=== PATIENT | female | born 1960 | race Caucasian/White ===

== ENCOUNTER 2020-06-02 06:04 | Day surgery (SDC) | payer OTHER, SELFPAY ==
[2020-05-27 08:48] VITALS: BMI 27.4
[2020-06-02] VITALS (18 sets, daily range): BP systolic 85–114; BP diastolic 55–81; PULSE 68–90; RESP 10–23; TEMP 35.6–37; O2SAT 91–98; BMI 27.3
--- NOTE | 2020-06-02 | DI.RAD.S_ITS ---
PROCEDURE: XR LUMBAR SPINE 2-3V INDICATIONS: L45 LAMINECTOMY W/ FUSION AND BONE GRAFT. TECHNIQUE: Fluoroscopic images were obtained during an operative procedure and submitted for interpretation following the completion of the procedure. COMPARISON: [facility], MR, MR LUMBAR SPINE WITHOUT CONTRAST, 02/09/2020, 13:07. [facility], CR, XR LUMBAR SPINE 2 OR 3 VIEWS, 03/28/2020, 9:55. FINDINGS: These fluoroscopic images were performed for intraoperative localization. On these images, bilateral pedicle screws are seen at the L4-L5 level, with vertical fixation rods and a disc spacer. No joaquin intraoperative complication is seen. Please correlate with intraoperative findings. IMPRESSION: Normal intraoperative examination. Dictated by: Frederic Robles M.D. on 06/02/2020 at 9:11 Approved by: Frederic Robles M.D. on 06/02/2020 at 9:12
[2020-06-02] MEDS: LACTATED RINGERS 1,000 ML 42 ML IV ×2 (07:00→09:21)
--- NOTE | 2020-06-02 07:13 | PM.PREOP ---
Pre-operative Note COVID-19 COVID-19 status: Negative Result date/Date tested (Pos, Neg/Pending): 05/30/20 Interval Note History & Physical reviewed/Exam performed by Physician: Yes Changes to H&P: No H&P completed within 30 days and has changed as indicated here:: L leg worse now
[2020-06-02] MEDS: CEFAZOLIN 2 GM/100 ML FROZ.PIGGY IV ×3 (07:34→23:19)
--- NOTE | 2020-06-02 07:35 | P.OP_ITS ---
Operative Date/Time/Diagnoses Date of procedure: 06/02/20 Time of procedure: 09:47 Pre-op diagnosis: Lumbar stenosis with radiculopathy Post-op diagnosis: same Procedure & Clinicians Procedure: L4-5 TLIF (posterior/posterior interbody fusion) with cage L4-5 screws Iliac crest bone graft L4-5 laminectomy Microscope Placement of epidural catheter Same procedure as scheduled: Yes Indications: [age] year old female with intractable pain from stenosis. They had failed conservative management and requested operative intervention. Risks and benefits of surgery were discussed and appropriate consents were obtained. Surgeon: Osmar Solis [employer] Specialist: Madelaine Lim Anesthesia Type: General Operative Notes Findings: None Closure Type: primary Specimen(s): none sent Prosthetic devices, grafts, tissues, transplants, or devices: NuVasive MAS Reline screws Globus Rise cage Applied: catheter Estimated Blood Loss (mL): 20 Blood products transfused: none Procedure in detail: The patient was brought to the operating room and intubated on the table. A time-out was performed. They were then rolled over to the well- padded Jaskaran table in the prone position. Preoperative antibiotics were given. The back was prepped and draped in the standard sterile fashion. Using fluoroscopy, a 4 cm longitudinal incision was made to the well-marked left of the midline. We used Bovie to come down to and split the lumbodorsal fascia. Using fluoroscopy and monitoring, we then percutaneously placed Jamshidi needles down the pedicles of L4 and L5 on the left side. These were changed out to guidewires and then we tapped and then placed the NuVasive MAS Reline screw shanks. We then opened up the retractors and used Bovie to clear up the posterolateral gutter as well as medially along the lamina to the spinous processes. A bur was used to decorticate the transverse processes. We brought in the microscope. Using a combination of bur and Kerrison rongeurs, a laminectomy was performed from the left side. We cleared over past the midline and carefully depressed the dura until we were able to decompress the opposite side. We cleared out the neural foramen. This completed the la minectomy at L4-5. This was separate and distinct from the TLIF approach as we had to decompress the canal and the nerves. We then began the TLIF prep. A complete facetectomy was performed on this side at L4-5. We carefully cleaned up the remainder of the foramen until we could easily retract the exiting root as well as clearing medially below the dura and expose the disc space. The disc was prepped with bipolar and then an annulotomy was performed. We performed a diskectomy using a combination of paddles, irene, pituitaries, and curettes. We distracted the disc using a paddle and locked the retractor in an open position. We then filled the disc space with Osteocel bone graft. We then placed the globus Rise cage under fluoroscopy and then filled this in with more bone graft. The distraction on the retractor was released to compress down. This completed the posterior interbody fusion portion of the TLIF at L4-5. An epidural catheter was then prepped with 4 mL of 0.5% Marcaine, 1 mg Stadol, 4 mg Duramorph, and 100 mcg of fentanyl and placed in the spinal canal by carefully depressing the dura and advancing it 6 cm cephalad under the remaining lamina without resistance. We then placed the screw heads, edward, and locked down the set screws. The wound was copiously irrigated. A small stab incision was made over the PSIS. We used a Jamshidi needle to aspirate several mL of bone marrow from the pelvis. This was mixed with the remaining Osteocel and combined with all of the locally harvested bone graft and placed in the posterolateral gutter for the posterior fusion of the TLIF at L4- 5. The muscle fascia was closed. The epidural catheter was then injected without resistance and the catheter was pulled. We then went to the opposite side. Again using fluoroscopy, a 3 cm incision was made and Bovie was used to come down to split the fascia. Using neural monitoring and fluoroscopy, Jamshidi needles were advanced down the pedicles of L4 and L5 on the right side. These were switched over guidewires, tapped, and screws placed. We then placed a edward and locked the set screws on this side. The wound was irrigated. The fascia was closed. Vancomycin powder was placed in the wounds. The superficial and skin were closed. A sterile dressing was placed. The patient was then rolled over extubated and brought to recovery room without complications. Complications: none Post-operative Condition: stable Disposition: PACU Plan for aftercare: Admit to the hospital. Up with PT.
--- NOTE | 2020-06-02 08:09 | SUR.OPER ---
Prone on spine table, head in foam head support, padded chest and pelvic supports, gel pad at knees, lower legs supported by pillows; nipples, genitalia and toes free of pressure, arms secured on foam padded arm boards at <90 degrees abduction. Tape over blanket at thigh secured to table.
[2020-06-02] MEDS: THROMBIN (RECOMBINANT) 5,000 UNIT VIAL 5000 UNIT TOP (08:13)
[2020-06-02] MEDS: VANCOMYCIN 1,000 MG VIAL 1000 MG TOP (08:13)
[2020-06-02] MEDS: SODIUM CHLORIDE 0.9% 1,000 ML, GENTAMICIN 80 MG IRR ×2 (08:13→08:14)
[2020-06-02] MEDS: BUPIVACAINE 0.5% (PF) 4 ML, MORPHINE-PF 4 MG, BUTORPHANOL 1 MG, fentaNYL 100 MCG INJ (09:20)
--- NOTE | 2020-06-02 10:59 | SUR.PHASEI ---
1049 Pt has been sleeping, easily aroused throughout PACU stay; denied pain/nausea throughout. To room 212, bed down and locked, call light within reach, spouse in the room. SCDs on, VSS. No questions from staff.
[2020-06-02] MEDS: LACTATED RINGERS 1,000 ML 125 ML IV ×2 (11:19→21:11)
[2020-06-02] MEDS: CELECOXIB 200 MG CAPSULE 400 MG PO (12:02)
--- NOTE | 2020-06-02 15:42 | PT.IIE ---
Current Diagnoses Spinal stenosis, lumbar region with neurogenic claudication (06/02/20) Other intervertebral disc degeneration, lumbar region (06/02/20) Strain of muscle, fascia and tendon of lower back, subsequent encounter (06/02/20) Surgery Performed Operation Date: 06/02/20 07:45 Actual Procedures p L45 laminectomy and instrumented fusion w/bone graft(Not Applicable) - Osmar Solis MD Surgical History (Last Updated 05/27/20 @ 09:28 by Renetta Gonzalez RN) History of (Acute) History of hysterectomy (Acute) Hx of cholecystectomy (Acute) Hx of tubal ligation (Acute) Medical History (Last Updated 05/27/20 @ 09:27 by Renetta Gonzalez RN) Anxiety (Acute) Arthritis (Acute) Depression (Acute) Easy bruisability (Acute) Eczema (Acute) Elevated cholesterol (Acute) GERD (gastroesophageal reflux disease) (Acute) Seizure (Acute) Physical Therapy Inpatient Evaluation/Re-Eval M1 PT/OT-IP Prior Functional Status Start: 06/02/20 14:42 Freq: NEEDED Status: Active Protocol: Document 06/02/20 15:42 AB (Rec: 06/02/20 16:58 AB [id number]) Medical Review Prior Functional Status Medical History Reviewed Yes Communication able to make needs known Mobility and Gait pt stated that she is independent with all mobilities and ambulation without AD Social History Household Members spouse Living Arrangements House Number of Floors (Floors) Two Floors Number of Stairs To Enter/Railing? pt stays on main level of the house has 1 step to enter from the garage Home Environment Standard Height Toilet,Walk in Shower Additional Social History Comment pt has not DME (just had FWW ~ 2 years ago but stated that they gave it away); spouse will try to borrow from friends but if not, will purchase one pt's son will also stay with pt to assist M2 PT-IP Current Condition Start: 06/02/20 14:42 Freq: NEEDED Status: Active Protocol: Document 06/02/20 15:42 AB (Rec: 06/02/20 16:58 AB [id number]) Physical Therapy Current Condition Current Condition Evaluation Date 06/02/20 Treatment Diagnosis s/p L4-5 TLIF/lami; difficulty in walking Onset Date 06/02/20 Precautions Lumbar Precautions Log Roll,No Twisting,Limit Bending,Lifting Restriction of 10 lbs,Gait Belt above Incisional Area M3 PT-IP Subjective Start: 06/02/20 14:42 Freq: NEEDED Status: Active Protocol: Document 06/02/20 15:42 AB (Rec: 06/02/20 16:58 AB [id number]) Subjective Physical Therapy Visit Type Type Initial Evaluation Visit Start Time 15:42 Visit Stop Time 16:26 Total Visit Minutes 44 Number of CONSTRUCTION SUPERINTENDENT Visits 0 Physical Therapy Visit Comments Patient Comments pt is requested to move and sit up Therapy Pain Assessment Pain When Pain Assessed At Rest Pain Present Pain Present Pain Reported Location back Intensity 5 Scale Used Numeric (0 - 10) Pain Management Techniques Modification of Treatment,Re- positioning,Timing of Activity with Medications M4 PT-IP Mobility and Gait Start: 06/02/20 14:42 Freq: NEEDED Status: Active Protocol: Document 06/02/20 15:42 AB (Rec: 06/02/20 16:58 [email or web address]) PT-Bed Mobility Assessment Rolling Type of Rolling Log Rolling Level of Assist Standby Assistance Supine to Sit Supine to Sit Standby Assistance Sit to Supine Sit to Supine Standby Assistance Scooting Scooting to Edge of Bed Standby Assistance PT-Transfer Assessment Sit to and From Stand Sit to and from Stand Minimal Assistance,1 Person Assistance,Use of Upper Extremities Equipment Transfer Assistive Device Gait Belt,Front Wheeled Walker Orthotic/Prosthetic Devices or Brace: No Comments Mobility Comments educated on back precautions and log roll bed mobility. completed log roll supine to sit with max cues. pt is drowsy and requires cues for all tasks and has difficulty following directions. spouse in room with pt. pt was able to sit on EOB SBA to CGA. scooted to EOB SBA. completed sit to stand min A and cues and was able to take 2 steps forwards then backwards and side stepping towards HOB but with c/o increase back pain. pt is drowsy and instructed to lay back in bed. pt completed sit to supine SBA and cues for techniques for log roll. positioned pt in bed. call light and table placed within reach. informed pt and spouse that pt will need a FWW. pt stated that she just had one ~ 2 years ago but gave it away. Spouse stated that he will try to borrow one and if not, he will purchase one outside since he is not sure if pt's insurance will cover another FWW. Gait Assessment Gait Gait Assistance Required: Minimum Assistance,1 Person Assist Distance (Feet) 2 Able to Maintain Weight Bearing Status Yes During Gait Assistive Devices Assistive Device Gait Belt,Front Wheeled Walker Orthotic/Prosthetic Devices or Brace: No Gait Deviations General Gait Pattern Antalgic,Decreased Stride Length,Decreased Feet Clearance,Step-to Gait Factors Limiting Gait Function Factors Limiting Gait Function Decreased Activity Tolerance, Decreased Strength,Difficulty Following Directions,Limited Range of Motion,Pain,Poor Balance,Poor Safety Awareness Comments Gait Comments pt was able to take a few steps but did not walk far due to c/o increase back pain and pt is also drowsy. PT-Balance Assessment Sitting Balance and Reactions Static Sitting Balance Ability Good Dynamic Sitting Balance Ability Good Standing Balance and Reactions Static Standing Balance Ability Fair Dynamic Standing Balance Ability Fair Device Used FWW M5 PT-IP Objective Assessments Start: 06/02/20 14:42 Freq: NEEDED Status: Active Protocol: Document 06/02/20 15:42 AB (Rec: 06/02/20 16:58 AB [email or web address]) Orientation Orientation/Cognition Level of Alertness Alert Orientation Name,Place,Situation Safety Awareness Decreased Safety Awareness Memory Description Short Term Impaired Gross Range of Motion Lower Extremity ROM Assessment Within Functional Limits Strength Lower Extremity Strength Assessment Bilaterally Impaired Comments Strength Comments RLE3+/5 LLE 4-/5 Muscle Tone Muscle Tone WNL Yes M6 PT-IP Treatment Start: 06/02/20 14:42 Freq: NEEDED Status: Active Protocol: Document 06/02/20 15:42 AB (Rec: 06/02/20 16:58 AB [email or web address]) Physical Therapy Treatment Education Education Provided Precautions,Weight Bearing Status,Post-Op Packet,Safety M7 PT-IP Assessment and Plan Start: 06/02/20 14:42 Freq: NEEDED Status: Active Protocol: Document 06/02/20 15:42 AB (Rec: 06/02/20 16:58 AB [email or web address]) PT Summary Assessment and Plan Potential Rehabilitation Potential Good Status of Condition at Evaluation Evolving Summary Impairments Pain,ROM,Strength,Balance, Coordination,Sensation,Tone, Cognition,Bed Mobility, Transfers,Gait,Activity Tolerance Assessment Summary pt s/p L4-5 TLIF and just had surgery this morning. pt will likely progress during hospital stay and plans to go home and spouse will assist pt at home. d/c plan depending on progress and caregiver training will be conducted when appropriate and will also complete stair climbing training prior to d/c. Goals Bed Mobility Goal Independent Transfer Goal Independent,Front Wheeled Walker Gait Goal Independent,Front Wheel Walker Gait Distance 200 Other Goals up/down 1 step using FWW SBA Days to Meet Goals 5 Frequency of Treatment Frequency Of Treatment Twice a Day Treatment Plan Physical Therapy Treatment Plan Bed Mobility Training,Transfer Training,Gait Training, Therapeutic Exercise,Balance Retraining,Post Op Education, Discharge Planning,Hot or Cold Pack,Neuromuscular Re-ed, Coordination Retraining,Manual Therapy Other Recommendations and Next Treatment ambulation, stair climbing, Focus caregiver training when appropriate Recommendations To Nursing Amount of Assist Needed 1 Person Assist Discharge Recommendations PT Discharge Recommendations Home with Assistance Transportation Needs at Discharge Private Vehicle
[2020-06-02] MEDS: GABAPENTIN 400 MG CAPSULE 800 MG PO ×2 (15:48→21:11)
[2020-06-02] MEDS: HYDROCODONE/ACET 5/325 TABLET 2 TAB PO ×2 (15:50→21:12)
[2020-06-02] MEDS: diphenhydrAMINE 25 MG TABLET PO (19:08)
[2020-06-02] MEDS: DOCUSATE 100 MG CAPSULE PO (21:12)
[2020-06-02] MEDS: SENNOSIDES 8.6 MG TABLET 17.2 MG PO (21:12)
[2020-06-02] MEDS: TRAZODONE 100 MG TABLET PO (21:12)
[2020-06-02] MEDS: CELECOXIB 200 MG CAPSULE PO (21:12)
[2020-06-03 04:10] VITALS: BP 100/62; PULSE 90; RESP 20; TEMP 36.8; O2SAT 94
[2020-06-03] MEDS: HYDROCODONE/ACET 5/325 TABLET 2 TAB PO ×3 (04:12→12:00)
[2020-06-03 06:18] LABS: Hematocrit 33.9 % (36-46); Hemoglobin 11.4 g/dL (12.0-16.0)
--- NOTE | 2020-06-03 06:52 | PM.PNPO.1 ---
Subjective Subjective Date Patient Seen: 06/03/20 Time Patient Seen: 06:52 Interval history: She is doing very well. She has been up and moving around with minimal assistance. Pain is under good control. Legs feel great Exam Vital Signs (past 8 hours): - 06/02/20 23:05 06/03/20 04:10 Temperature 98.6 F 98.2 F Pulse Rate 87 90 Respiratory Rate 16 20 Blood Pressure 111/70 100/62 Pulse Oximetry 94 94 Oxygen Delivery Method Room Air Oxygen Flow Rate 0 Const Orientation: alert and oriented x3 Back/Spine/Pelvis Other: Mild drainage. 5/5 motor both lower extremities Objective Labs Result Diagrams: 06/03/20 05:34 Labs: Laboratory Results - last 24 hr 06/03/20 05:34 Hgb 11.4 L Hct 33.9 L Assessment & Plan Post-op Postoperative Procedures: Procedures Operation Date: 06/02/20 07:45 Actual Procedures Side Surgeon p L45 laminectomy and instrumented fusion w/bone graft Not Applicable Osmar Solis MD she is doing great. Mobilize with PT this morning. She wants to go home after that. Quality VTE Deep Vein Thrombosis/Pulmonary Embolism Present on Admission: No
[2020-06-03 07:48] VITALS: BP 115/76; PULSE 77; RESP 16; TEMP 35.7; O2SAT 95
[2020-06-03] MEDS: DOCUSATE 100 MG CAPSULE PO (08:03)
[2020-06-03] MEDS: GABAPENTIN 400 MG CAPSULE 800 MG PO (08:03)
[2020-06-03] MEDS: estradioL 0.5 MG TABLET PO (08:03)
[2020-06-03] MEDS: CELECOXIB 200 MG CAPSULE PO (08:03)
[2020-06-03] MEDS: OXYBUTYNIN 5 MG TABLET PO (08:04)
[2020-06-03] MEDS: SERTRALINE 50 MG TABLET 100 MG PO (08:04)
[2020-06-03] MEDS: FLUTICASONE 120 SPRAY/16 GM SPRAY.SUSP NASAL (08:05)
--- NOTE | 2020-06-03 08:21 | PC.NURSE ---
Addendum entered by Amaya Peace R.N. 06/03/20 12:06: pt d/c at 1206 with personal belongings Original Note: Drsg changed; incisions intact, well-approximated; connor-skin healthy, pink; petroleum gauze still in place to right incision; 4 X 4 Gauze drsg secured with Tegaderm; patient tolerated well PO [employer] for moderate post-op pain; patient transfered with 1-asst to toilet; gait stable; fww
--- NOTE | 2020-06-03 09:30 | PT.IPTN ---
Current Diagnoses Spinal stenosis, lumbar region with neurogenic claudication (06/02/20) Other intervertebral disc degeneration, lumbar region (06/02/20) Strain of muscle, fascia and tendon of lower back, subsequent encounter (06/02/20) Surgery Performed Operation Date: 06/02/20 07:45 Actual Procedures p L45 laminectomy and instrumented fusion w/bone graft(Not Applicable) - Osmar Solis MD Physical Therapy Treatment Note M2 PT-IP Current Condition Start: 06/02/20 14:42 Freq: NEEDED Status: Active Protocol: Document 06/02/20 15:42 AB (Rec: 06/02/20 16:58 AB [email or web address]) Physical Therapy Current Condition Current Condition Evaluation Date 06/02/20 Treatment Diagnosis s/p L4-5 TLIF/lami; difficulty in walking Onset Date 06/02/20 Precautions Lumbar Precautions Log Roll,No Twisting,Limit Bending,Lifting Restriction of 10 lbs,Gait Belt above Incisional Area M3 PT-IP Subjective Start: 06/02/20 14:42 Freq: NEEDED Status: Active Protocol: Document 06/03/20 09:30 AB (Rec: 06/03/20 12:53 AB [id number]) Subjective Physical Therapy Visit Type Type Treatment Note Visit Start Time 09:30 Visit Stop Time 11:08 Total Visit Minutes 49 Notes pt seen for split visits: 930 to 1009 and 1058 to 1108 Physical Therapy Visit Comments Patient Comments pt is agreeable to do PT Therapy Pain Assessment Pain When Pain Assessed At Rest Pain Present Pain Present Pain Reported Location back Intensity 4 Scale Used Numeric (0 - 10) Pain Management Techniques Distraction,Modification of Treatment,Timing of Activity with Medications M4 PT-IP Mobility and Gait Start: 06/02/20 14:42 Freq: NEEDED Status: Active Protocol: Document 06/03/20 09:30 AB (Rec: 06/03/20 12:53 AB [id number]) PT-Bed Mobility Assessment Rolling Type of Rolling Log Rolling Level of Assist Standby Assistance Supine to Sit Supine to Sit Standby Assistance Sit to Supine Sit to Supine Standby Assistance PT-Transfer Assessment Sit to and From Stand Sit to and from Stand Contact Guard Assistance, Minimal Assistance,1 Person Assistance,Use of Upper Extremities Equipment Transfer Assistive Device Gait Belt,Front Wheeled Walker Orthotic/Prosthetic Devices or Brace: No Transfers Transfer Destination Bed,Chair Transfer Technique anmbulated using FWW Transfer Ability Level of Assist Contact Guard Assistance, Minimal Assistance,1 Person Assistance,Use of Upper Extremities Comments Mobility Comments pt completed sit to stand from chair min A and with initial LOB requiring min A for rebalancing. pt educated on sit to stand and completed again CGA and cues. pt ambulated towards the bed using FWW CGA. completed supine<>sit SBA but with cues for log roll technique. conducted caregiver training. educated spouse on how to assist and cues pt. pt completed supine<>sit with spouse assisting x 2 reps and requiring instructions from PT with first rep and was able to complete and spouse cueing pt. educated spouse on how to use safety belt and how to assist. spouse was able to put belt on and assist pt with ambulation in the hallway ~ 75 ft. completed up/down platform step using FWW and completed with spouse assiting. pt assisted back to her room. ambulated using fWW to the bed with spouse assisting and completed sit to supine SBA. positioned pt in bed. call light and table placed within reach. Gait Assessment Gait Gait Assistance Required: Contact Guard Assist,Minimum Assistance,1 Person Assist Distance (Feet) 75 Able to Maintain Weight Bearing Status Yes During Gait Assistive Devices Assistive Device Gait Belt,Front Wheeled Walker Orthotic/Prosthetic Devices or Brace: No Gait Deviations General Gait Pattern Antalgic,Decreased Stride Length,Decreased Feet Clearance Factors Limiting Gait Function Factors Limiting Gait Function Decreased Activity Tolerance, Decreased Strength,Difficulty Following Directions,Limited Range of Motion,Pain,Poor Balance,Poor Safety Awareness Stair Climbing Assessment Evaluation Level of Assist On Stairs Minimal Assistance,1 Person Assistance Devices Stair Climbing Assistive Devices Front Wheel Walker Technique/Endurance Stair Climbing Direction Ascend and Descend Stair Climbing Technique Step to Step Number of Steps Climbed 1 Stair Climbing Set # Repetitions (reps) 2 Comments Stair Climbing Comments spouse was able to assist pt safely M5 PT-IP Objective Assessments Start: 06/02/20 14:42 Freq: NEEDED Status: Active Protocol: Document 06/02/20 15:42 AB (Rec: 06/02/20 16:58 AB [id number]) Orientation Orientation/Cognition Level of Alertness Alert Orientation Name,Place,Situation Safety Awareness Decreased Safety Awareness Memory Description Short Term Impaired Gross Range of Motion Lower Extremity ROM Assessment Within Functional Limits Strength Lower Extremity Strength Assessment Bilaterally Impaired Comments Strength Comments RLE3+/5 LLE 4-/5 Muscle Tone Muscle Tone WNL Yes M6 PT-IP Treatment Start: 06/02/20 14:42 Freq: NEEDED Status: Active Protocol: Document 06/03/20 09:30 AB (Rec: 06/03/20 12:53 AB [id number]) Physical Therapy Treatment Education Education Provided Precautions,Safety M7 PT-IP Assessment and Plan Start: 06/02/20 14:42 Freq: NEEDED Status: Active Protocol: Document 06/03/20 09:30 AB (Rec: 06/03/20 12:53 AB [id number]) PT Summary Assessment and Plan Potential Rehabilitation Potential Good Summary Impairments Pain,ROM,Strength,Balance, Coordination,Sensation,Tone, Cognition,Bed Mobility, Transfers,Gait,Activity Tolerance Progress Towards Goals Progressing Toward Goals Assessment Summary caregiver training conducted and spouse was able to assist pt safely. pt plans to go home with spouse to assist. pt may go home when medically stable. Goals Bed Mobility Goal Independent Transfer Goal Independent,Front Wheeled Walker Gait Goal Independent,Front Wheel Walker Gait Distance 200 Other Goals up/down 1 step using FWW SBA Days to Meet Goals 5 Frequency of Treatment Frequency Of Treatment Twice a Day Treatment Plan Physical Therapy Treatment Plan Bed Mobility Training,Transfer Training,Gait Training, Therapeutic Exercise,Balance Retraining,Post Op Education, Discharge Planning,Hot or Cold Pack,Neuromuscular Re-ed, Coordination Retraining,Manual Therapy Other Recommendations and Next Treatment ambulation, stair climbing, Focus caregiver training when appropriate Recommendations To Nursing Amount of Assist Needed 1 Person Assist Discharge Recommendations PT Discharge Recommendations Home with Assistance Transportation Needs at Discharge Private Vehicle
--- NOTE | 2020-06-03 10:48 | CM.DANOTE ---
Discharge Planning/Care Management DCP: assessment: case received, EMR reviewed and a d/c to home order was noted. Pt is a 59 year old female who admitted yesterday for a scheduled spinal surgery. Surgeon: Dr. Solis. PT and OT are ordered. PT Ksenia reports she has now worked with pt on stairs and with her on caregiver training and she only needs a FWW before she leaves. Went to room to check in and introduce self and role. Pt confirms above. FWW order is obtained and given now to PT Ksenia for final processing and presentation to pt. Home today. CM Discharge Assessment Start: 06/03/20 10:47 Freq: Status: Active Protocol: Document 06/03/20 10:47 ITV (Rec: 06/03/20 10:48 ITV [id number]) Discharge Planning Assessment Advance Directives? No Advance Directives on File No History Provided By Patient,Medical Record Prior Living Arrangements House Household Members spouse Is patient alert and oriented? Yes Review Status In Process Pre-Anesthesia Assessment Start: 05/27/20 08:48 Freq: Status: Complete Protocol: Document 05/27/20 08:48 [facility] (Rec: 05/27/20 09:48 CAB [id number]) Pre-Anesthesia Assessment Preferred Name Chantal Patient Information Reviewed Via Phone Assessment Assessment Completed With Patient Diagnostic Results BMP/CMP,CBC,EKG Comment Labs/EKG done per pt-not available-will do COVID screen w/surgeon 05/30/24 Primary Care Provider Stefania Coffman Seen Specialist in Last 12 Months Yes Specialist Seen Orthopedist Primary Language Moroccan Beader Required No Height 160.02 cm Weight 70.307 kg Body Mass Index (BMI) 27.4 Hearing Ability Normal Visual Assist Contacts,Glasses Dentition Type Teeth, Natural Present,Teeth, Missing Barriers to Learning None Hx Anesthesia Reactions No Hx Family Anesthesia Reaction No Hx Malignant Hyperthermia No Hx Blood Transfusions No Anesthesia Review Requested No alcohol intake current alcohol intake frequency a few times a week Smoking Status Former smoker Tobacco type cigarettes how long ago did patient quit smoking Quit approx 12 years ago Substance Use Type does not use Pain Present Pain Reported Musculoskeletal Symptoms Abnormal Gait,Back Pain, Difficulty Walking,Numbness, Radiating Pain into Limb, Tingling History of Falling (Recent or History of No ) Patient is completely paralyzed or No completely immobile Mental Status Oriented to own ability Is patient on oxygen? No Does patient have GARVIN/SOB No Hx Sleep Apnea No Currently Taking a Beta Momo No Hx Chest Pain No Hx SOB No Hx Syncope or Dizziness No Anti-Coagulant Therapy No Has a Work Manager No Cardiac Testing No Hx Pacemaker/ICD No Pacemaker Rep Required? No Cardiac Clearance Received Not Applicable Diet Type At Home Regular dysphagia No Gastrointestinal Symptoms Constipation Bladder Pattern Incontinent,Urgency Urinary Catheter Present No Hx Urinary Self Catheterization No Diabetes No Patient No Lactating No Hx Drug Resistant Organism No Presence of External or Internal Medical No Devices Have you had any close contact with No someone diagnosed with COVID-19? Marital Status Lives With spouse Prior Living Arrangements House Number of Floors (Floors) Two Floors Support System Family,Spouse Does the Patient Have Assistance After Yes Surgery Patient Discharge Plan Description Return Home Comment Pt advised 2-3 day length of stay per surgeon Feels Safe in Current Environment Yes Been Physically Hurt or Threatened By a No Person in Current Environment Do you have thoughts of harming yourself None or others? Are you currently considering suicide? No Do you have a plan to hurt yourself or No Plan others? Do You Have Any Spiritual Beliefs That No May Affect Your HC Choices? Do You Have Any Cultural Practices That No May Affect Your HC Choices? Comment Pentecostal Who Can We Speak to About Patient's Care Family, friends Identifying Code for Release of Patient Declines to issue Information Health Care Proxy/Next of Kin Berny () Health Care Proxy Emergency Contact Name Berny () Emergency Contact Advance Directives? No Power of Non Destructive Testing Specialist No PAC Instructions Durable medical equipment, Medications to take/avoid, Nasal antibiotic,No ETOH/ petroleum product on skin DOS, NPO,Post-op transportation,Pre -surgical wash,Sensory aids, Sturdy shoes/comfortable clothes,Do not bring valuables and remove jewelry
--- NOTE | 2020-06-03 11:51 | OT.IP.EVAL ---
Current Diagnoses Spinal stenosis, lumbar region with neurogenic claudication (06/02/20) Other intervertebral disc degeneration, lumbar region (06/02/20) Strain of muscle, fascia and tendon of lower back, subsequent encounter (06/02/20) Surgery Performed Operation Date: 06/02/20 07:45 Actual Procedures p L45 laminectomy and instrumented fusion w/bone graft(Not Applicable) - Osmar Solis MD Past Medical History (Last Updated 05/27/20 @ 09:27 by Renetta Gonzalez RN) Anxiety (Acute) Arthritis (Acute) Depression (Acute) Easy bruisability (Acute) Eczema (Acute) Elevated cholesterol (Acute) GERD (gastroesophageal reflux disease) (Acute) Seizure (Acute) Surgical History (Last Updated 05/27/20 @ 09:28 by Renetta Gonzalez RN) History of (Acute) History of hysterectomy (Acute) Hx of cholecystectomy (Acute) Hx of tubal ligation (Acute) Occupational Therapy Inpatient Evaluation/Re-Eval M1 PT/OT-IP Prior Functional Status Start: 06/03/20 12:56 Freq: NEEDED Status: Active Protocol: Document 06/03/20 12:56 [facility] (Rec: 06/03/20 13:22 [facility] [id number]) Medical Review Prior Functional Status Medical History Reviewed Yes Communication able to make needs known Mobility and Gait pt stated that she is independent with all mobilities and ambulation without AD Activities of Daily Living and IADL's Prior pt was completely independent with all Adl and IADl needs. Social History Household Members spouse Living Arrangements House Number of Floors (Floors) Two Floors Number of Stairs To Enter/Railing? pt stays on main level of the house has 1 step to enter from the garage Home Environment Standard Height Toilet,Walk in Shower Additional Social History Comment pt has not DME (just had FWW ~ 2 years ago but stated that they gave it away); spouse will try to borrow from friends but if not, will purchase one pt's son will also stay with pt to assist M2 OT-IP Current Condition Start: 06/03/20 12:56 Freq: Status: Active Protocol: Document 06/03/20 12:56 [facility] (Rec: 06/03/20 13:22 [facility] [id number]) Occupational Therapy Current Condition Current Condition Evaluation Date 06/03/20 Treatment Diagnosis Lumbar stenosis, s/p L4-5 laminectomy and instr. fusion Diagnosis Onset Date 06/02/30 Post Operative Precautions Lumbar Precautions Log Roll,No Twisting,Limit Bending,Lifting Restriction of 10 lbs,Gait Belt above Incisional Area M3 OT- IP Subjective and Pain Start: 06/03/20 12:56 Freq: Status: Active Protocol: Document 06/03/20 12:56 [facility] (Rec: 06/03/20 13:22 [facility] [id number]) OT- Subjective Occupational Therapy Visit Type Type Initial Evaluation Visit Start Time 11:28 Visit Stop Time 11:51 Total Visit Minutes 23 Occupational Therapy Visit Comments Patient Comments Pt's present for caregiver training. Patient/Caregiver Goals To go home. OT Pain Assessment Pain When Pain Assessed At Rest Pain Present Pain Present Denied Pain M4 OT- IP ADL's Start: 06/03/20 12:56 Freq: Status: Active Protocol: Document 06/03/20 12:56 [facility] (Rec: 06/03/20 13:22 [facility] [id number]) OT [id number] Comments OT Self-Feeding Comments NOt at meal time. OT ADL-Grooming Comments OT Grooming Comments Educated to spit into a cup or be sure to hinge at her hip to lean forward to best follow the back precautions. OT ADL-Dressing General Eval Lower Body Dressing Ability Minimal Assistance Comments OT Dressing Comments Educated pt on use of driver starting gate and pt still having difficulty and needing her to assist as forgetting her back precautions. At this time would be best to have her assist with all Adl needs. OT ADL-Toileting General Evaluation Toileting Ability Moderate Assistance Comments OT Toileting Comments Pt not able to reach to wipe from behind and suggested to getting a toilet paper aid otherwise will need to assist. OT ADL-Bathing Comments OT Bathing Comments Not at this time. Pt's able to get a shower chair. M5 OT- IP IADL's Start: 06/03/20 12:56 Freq: Status: Active Protocol: Document 06/03/20 12:56 [facility] (Rec: 06/03/20 13:22 [facility] [id number]) OT-Instrumental Activities of Daily Living Home Safety Awareness Home Safety Comments Pt not recalling her back precautions and and needing to have supervision and assist at this time due to decreased safety awareness. Medication Management Medication Management Comments aware to assist pt for all needs. Money Management Money Management Comments aware to assist pt for all needs. Meal Preparation Meal Preparation Comments aware to assist pt for all needs. Sales Support Administrator Sales Support Administrator Comments aware to assist pt for all needs. M6 OT- IP Functional Cognition Start: 06/03/20 12:56 Freq: Status: Active Protocol: Document 06/03/20 12:56 [facility] (Rec: 06/03/20 13:22 [facility] [id number]) Cognitive Factors Limiting Selfcare Function Cognitive Ability Level of Alertness Alert Patient Orientation Name,Age,Birthday,Month,Date, Year,Day of Week,Place, Situation Attention Span Ability Capable of Focused Attention, Capable of Sustained Attention Ability to Follow Commands Able to Follow One Step Commands with Increased Time, Able to Follow One Step Commands with Repetition Memory Description Short Term Impaired Safety Awareness Decreased Recall of Precautions,Decreased Ability to Apply Precautions, Underestimates Need for Assistance Problem Solving Ability Needs Assist to Identify Solutions Cognitive Comments Cognitive Assessment Comments Pt not remembering the back precautions and needing supervision at all times. OT- Vision and Hearing OT- Hearing Assessment OT- Hearing Assessment WFL M7 OT- IP Mobility and Balance Start: 06/03/20 12:56 Freq: Status: Active Protocol: Document 06/03/20 12:56 [facility] (Rec: 06/03/20 13:22 [facility] [email or web address]) OT-Transfer Assessment Sit to and From Stand Sit to and from Stand Standby Assistance,Contact Guard Assistance Transfers Transfer Ability Standby Assistance,Contact Guard Assistance Technique Transfer Destination Chair,Toilet Transfer Technique Stand Step Pivot Devices Transfer Assistive Devices Gait Belt,Front Wheeled Walker Comments Mobility Comments At times pt needing CGA for balance while use of FWW. OT- Balance Assessment Sitting Balance and Reactions Static Sitting Balance Ability Normal Dynamic Sitting Balance Ability Good Standing Balance and Reactions Static Standing Balance Ability Fair M8 OT- IP Objective Assessments Start: 06/03/20 12:56 Freq: Status: Active Protocol: Document 06/03/20 12:56 [facility] (Rec: 06/03/20 13:22 [facility] [id number]) OT Gross Range of Motion Upper Extremity Range of Motion Assessment Within Functional Limits OT-Muscle Tone Assessment Muscle Tone WNL Yes M9 OT- IP Assessment and Plan Start: 06/03/20 12:56 Freq: Status: Active Protocol: Document 06/03/20 12:56 [facility] (Rec: 06/03/20 13:22 [facility] [id number]) OT Summary Assessment and Plan Potential Rehabilitation Potential Good Analytic Complexity at Evaluation Low Summary OT Impairments Balance,Functional Cognition, Functional Mobility,Dressing, Toileting,Bathing,Toilet Transfers,Shower Transfers, Activity Tolerance Progress Towards Goals Progressing Toward Goals Assessment Summary Pt low complexity s/p L4-5 Laminectomy and instr. fusion doing well however main barrier are not able to remember and follow her back precautions. Pt has a very supportive who has good understanding and safety to assist pt for all needs. Goals Grooming Goal Independent Dressing Goal Independent Toileting Goal Independent Bathing Goal Independent Toilet Transfer Goal Independent Shower Transfer Goal Independent Patient/Caregiver Education Goal Demonstrate Post-Op Precautions,Caregiver Independent Assisting Patient Days to Meet Goals 5 Frequency of Treatment Frequency Of Treatment Once a Day Treatment Plan OT Treatment Plan ADL Training,Functional Cognition Training,Functional Mobility,Patient/Family Education,Discharge Planning Discharge Recommendations OT Discharge Recommendations Home with Assistance Home Equipment Needs Toilet paper aid Transportation Needs at Discharge Private Vehicle
== END 2020-06-03 12:30 | disposition home or self-care (01) ==
LOC: OR 06:09 → AC 06:10
PROVIDERS: Referring Provider Orthopaedic Surgery; Visit Provider Orthopaedic Surgery
PROC: (CPT 22633; principal; 2020-06-02 07:45)
DX: M48.062 Spinal stenosis, lumbar region with neurogenic claudication (principal); M51.36 Other intervertebral disc degeneration, lumbar region; M54.16 Radiculopathy, lumbar region; S39.012D Strain of muscle, fascia and tendon of lower back, subsequent encounter; F41.9 Anxiety disorder, unspecified
CPT/HCPCS: 22633; 20939; 22853; 22840; 63047; 36415; 72100; 76000; 85014; 85018; 94760; 94762; 97162; 97165; 97530; 97535; C1776; J0330; J0595; J0690; J1100; J1170; J2274; J2405; J2704; J3010